=== PATIENT | female | born 1985 ===

== ENCOUNTER 2021-04-03 11:33 | Emergency (ER) | payer SELFPAY ==
--- NOTE | 2021-04-13 10:29 | Electrocardiograph Report ---
[facility] Test Date: 2021-04-03 Test Time: 11:49:32 Pat Name: HANNAH GARNICA Department: Room: Gender: F [employer] Technology Specialist: RANJAN : 1985 Requested By: JORDI GUERIN Order Number: [id number] Reading MD: Pacheco Baeza Measurements Intervals [place] Rate: 100 P: 34 IL: 191 QRS: 7 QRSD: 93 T: 29 QT: 378 QTc: 488 Interpretive Statements Sinus tachycardia No previous ECG available for comparison Electronically Signed On 04-13-2021 10:28:54 EDT by Pacheco Baeza
== END 2021-04-03 15:00 | disposition left against medical advice (07) ==
LOC: ED 11:33
DX: R07.89 Other chest pain (principal); Z53.21 Procedure and treatment not carried out due to patient leaving prior to being seen by health care provider
CPT/HCPCS: 93005